=== PATIENT | male | born 1990 | race African-American/Black ===

== ENCOUNTER 2018-10-26 00:13 | Emergency (ER) | payer MEDICARE, MEDICAID ==
[~2018-10-26] VITALS: Ht 177.8 cm; Wt 86.2 kg
[2018-10-26 00:20] VITALS: BP 132/76
--- NOTE | 2018-10-26 00:35 | Emergency Room Report ---
History of Present Illness General Chief Complaint: Alcohol Intoxication Source: Patient, EMS Present Illness HPI Is a 28-year-old male brought in by EMS with chief complaint of alcohol intoxication. He is homeless and stated that he has been drinking heavily tonight. Bystander called 911. Patient denies any suicidal thoughts homicidal thought. Denies any drug use. No other complaint. Nothing made it better. Nothing made it worse. Allergies: Coded Allergies: UNABLE TO ASSESS (Unverified , 10/26/18) Patient History Past Medical History: see triage record, old chart reviewed Past Surgical History: none Pertinent Family History: none Social History: Reports: alcohol use Immunizations: other Reviewed Nursing Documentation: PMH: Agreed; PSxH: Agreed Nursing Documentation-PMH Past Medical History: No History, Except For Hx Cardiac Problems: No - HIV Review of Systems Eye: Denies: eye pain, blurred vision ENT: Denies: ear pain, nose congestion, throat swelling Respiratory: Denies: cough, shortness of breath Cardiovascular: Denies: chest pain, palpitations Gastrointestinal: Denies: abdominal pain, diarrhea, nausea, vomiting Musculoskeletal: Denies: back pain, joint pain Skin: Denies: rash Neurological: Denies: headache, numbness Endocrine: Denies: increased thirst, increased urine Hematologic/Lymphatic: Denies: easy bruising All Other Systems: negative except mentioned in HPI Physical Exam Vital Signs Date Time Temp Pulse Resp B/P (MAP) Pulse Ox O2 Delivery O2 Flow Rate FiO2 10/26/18 00:14 98.4 86 16 132/76 99 Room Air vitals stable Sp02 EP Interpretation: reviewed, normal General Appearance: well appearing, no apparent distress, alert, other - Intoxicated Head: normocephalic, atraumatic Eyes: bilateral eye PERRL, bilateral eye EOMI ENT: hearing grossly normal, normal pharynx Neck: full range of motion, supple, no meningismus Respiratory: chest non-tender, lungs clear, normal breath sounds Cardiovascular #1: regular rate, rhythm, no murmur Gastrointestinal: normal bowel sounds, non tender, no mass, no organomegaly, no bruit, non-distended Musculoskeletal: back normal, gait/station normal, normal range of motion Psychiatric: mood/affect normal Skin: warm/dry Medical Decision Making Diagnostic Impression: Primary Impression: Acute alcoholic intoxication Qualified Codes: F10.929 - Alcohol use, unspecified with intoxication, unspecified ER Course Patient with alcohol intoxication. No trauma to warrant CT scan or x-rays. Not suicidal homicidal. We'll discharge home in the morning once he is clinically sober. Last Vital Signs Date Time Temp Pulse Resp B/P (MAP) Pulse Ox O2 Delivery O2 Flow Rate FiO2 10/26/18 00:14 98.4 86 16 132/76 99 Room Air Status: improved Disposition: HOME, SELF-CARE Condition: Stable Scripts Unable to Obtain Active Prescriptions or Reported Meds Patient Instructions: Alcohol Intoxication, [id number] Additional Instructions: Follow-up with your doctor in 7 days. Abstain from alcohol. Return if worse. Zaheer Kaur MD Oct 26, 2018 00:35
[2018-10-26 02:37] VITALS: BP 122/72
[2018-10-26 05:56] VITALS: BP 117/73
== END 2018-10-26 05:50 | disposition home or self-care (01) ==
LOC: EDBD 00:13 → EMR 00:28
DX: F10.129 Alcohol abuse with intoxication, unspecified (principal); Z59.0 Homelessness
CPT/HCPCS: 99284

== ENCOUNTER 2019-11-01 19:15 | Emergency (ER) | payer MEDICARE, MEDICAID ==
[~2019-11-01] VITALS: Ht 182.9 cm; Wt 85.3 kg
--- NOTE | 2019-11-01 19:37 | NUR ---
ED Nurse Note: pt walked in c/o hearing voices, suicidal ideation, and need a place to sleep. pt belongings removed and documented and placed on cabinet 2. VSS, NAD, Pt is gowned and in bed. Will continue to monitor.
--- NOTE | 2019-11-01 19:38 | NUR ---
ED Nurse Note: suicide precaution in place, moreno Lowery RN at the bedside, charge nurse notified regarding pt's condition. safety measures in place.
[2019-11-01 19:50] VITALS: BP 106/70
--- NOTE | 2019-11-01 19:56 | NUR ---
ED Nurse Note: COLLECTED BLOOD THEN SENT.
--- NOTE | 2019-11-01 20:00 | NUR ---
ED Nurse Note: urine collected and sent to lab.
[2019-11-01 20:06] LABS: BASOPHILS % (AUTO) 1.2 % (0.0-2.0); EOSINOPHILS % (AUTO) 2.4 % (0.0-3.0); HEMATOCRIT 36.4 % (42.0-52.0); HEMOGLOBIN 11.6 G/DL (14.2-18.0); LYMPHOCYTES % (AUTO) 36.9 % (20.0-45.0); MEAN CORPUSCULAR VOLUME 73 FL (80-99); MONOCYTES % (AUTO) 16.3 % (1.0-10.0); NEUTROPHILS % (AUTO) 43.2 % (45.0-75.0); PLATELET COUNT 169 K/UL (150-450); RED BLOOD COUNT 4.97 M/UL (4.70-6.10); RED CELL DISTRIBUTION WIDTH 12.7 % (11.6-14.8); WHITE BLOOD COUNT 5.6 K/UL (4.8-10.8)
--- NOTE | 2019-11-01 20:16 | Emergency Room Report ---
History of Present Illness General Chief Complaint: Behavioral Complaint Source: Patient (YairleonardoGermaine NEAL) Present Illness HPI Patient presents with reports of suicidal thoughts Patient cannot give any specific plan He does report history of schizophrenia and bipolar disease patient reports that he has been on Zyprexa before however is not taking that medications Denies any headache denies any chest pain denies any abdominal pain Denies any auditory or visual hallucinations (Germaine Ruiz DO) Allergies: Coded Allergies: No Known Allergies (Unverified , 11/01/19) Patient History Past Medical History: see triage record Reviewed Nursing Documentation: PMH: Agreed; PSxH: Agreed (Germaine Ruiz DO) Nursing Documentation-PMH Past Medical History: No History, Except For (Germaine Ruiz DO) Review of Systems All Other Systems: negative except mentioned in HPI (Germaine Ruiz DO) Physical Exam Vital Signs Date Time Temp Pulse Resp B/P (MAP) Pulse Ox O2 Delivery O2 Flow Rate FiO2 11/01/19 19:37 98.1 76 18 106/70 (82) 96 Room Air Sp02 EP Interpretation: reviewed, normal General Appearance: well appearing, no apparent distress Head: normocephalic, atraumatic Eyes: bilateral eye PERRL, bilateral eye EOMI ENT: hearing grossly normal, normal pharynx, TMs + canals normal, uvula midline Neck: full range of motion, supple, no meningismus, no bony tend Respiratory: lungs clear, normal breath sounds, no rhonchi, no respiratory distress, no retraction, no accessory muscle use Cardiovascular #1: normal peripheral pulses, regular rate, rhythm, no edema, no gallop, no JVD, no murmur Gastrointestinal: normal bowel sounds, non tender, soft, no mass, no organomegaly, non-distended, no guarding, no hernia, no pulsatile mass, no rebound Musculoskeletal: normal inspection Neurologic: motor strength/tone normal, contracts administrator III-XII nml as tested, oriented x3 , sensory intact, responsive Psychiatric: other - Patient reported suicidal thoughts upon arrival Skin: no rash Lymphatic: normal inspection, no adenopathy (Germaine Ruiz DO) Medical Decision Making Diagnostic Impression: Primary Impression: Substance abuse ER Course Patient endorsed to me by Dr. Ruiz. Patient has been medically cleared. Patient reportedly had been having increased suicidal thoughts. Urine drug screen was noted to be positive for amphetamine. Labs Test 11/01/19 19:55 11/01/19 19:59 White Blood Count 5.6 K/UL (4.8-10.8) Red Blood Count 4.97 M/UL (4.70-6.10) Hemoglobin 11.6 G/DL (14.2-18.0) Hematocrit 36.4 % (42.0-52.0) Mean Corpuscular Volume 73 FL (80-99) Mean Corpuscular Hemoglobin 23.3 PG (27.0-31.0) Mean Corpuscular Hemoglobin Concent 31.9 G/DL (32.0-36.0) Red Cell Distribution Width 12.7 % (11.6-14.8) Platelet Count 169 K/UL (150-450) Mean Platelet Volume 5.7 FL (6.5-10.1) Neutrophils (%) (Auto) 43.2 % (45.0-75.0) Lymphocytes (%) (Auto) 36.9 % (20.0-45.0) Monocytes (%) (Auto) 16.3 % (1.0-10.0) Eosinophils (%) (Auto) 2.4 % (0.0-3.0) Basophils (%) (Auto) 1.2 % (0.0-2.0) Sodium Level 142 MMOL/L (136-145) Potassium Level 4.0 MMOL/L (3.5-5.1) Chloride Level 109 MMOL/L (98-107) Carbon Dioxide Level 24 MMOL/L (21-32) Anion Gap 9 mmol/L (5-15) Blood Urea Nitrogen 14 mg/dL (7-18) Creatinine 0.8 MG/DL (0.55-1.30) Estimat Glomerular Filtration Rate > 60 mL/min (>60) Glucose Level 84 MG/DL (74-106) Calcium Level 8.4 MG/DL (8.5-10.1) Total Bilirubin 0.3 MG/DL (0.2-1.0) Aspartate Amino Transf (AST/SGOT) 64 U/L (15-37) Alanine Aminotransferase (ALT/SGPT) 55 U/L (12-78) Alkaline Phosphatase 78 U/L (46-116) Total Protein 7.8 G/DL (6.4-8.2) Albumin 3.1 G/DL (3.4-5.0) Globulin 4.7 g/dL Albumin/Globulin Ratio 0.7 (1.0-2.7) Salicylates Level 2.8 ug/mL (2.8-20) Acetaminophen Level < 2 MCG/ML (10-30) Serum Alcohol < 3 mg/dL Urine Opiates Screen Negative (NEGATIVE) Urine Barbiturates Screen Negative (NEGATIVE) Phencyclidine (PCP) Screen Negative (NEGATIVE) Urine Amphetamines Screen Positive (NEGATIVE) Urine Benzodiazepines Screen Negative (NEGATIVE) Urine Cocaine Screen Negative (NEGATIVE) Urine Marijuana (THC) Screen Positive (NEGATIVE) (Cas Noel MD) Last Vital Signs Date Time Temp Pulse Resp B/P (MAP) Pulse Ox O2 Delivery O2 Flow Rate FiO2 11/01/19 19:37 98.1 76 18 106/70 (82) 96 Room Air (Germaine Ruiz DO) Status: improved (Cas Noel MD) Disposition: HOME, SELF-CARE Condition: Stable Germaine Ruiz DO Nov 01, 2019 20:16 Cas Noel MD Nov 02, 2019 05:20
[2019-11-01 20:24] LABS: ANION GAP 9 mmol/L (5-15); BLOOD UREA NITROGEN 14 mg/dL (7-18); CALCIUM 8.4 MG/DL (8.5-10.1); CARBON DIOXIDE 24 MMOL/L (21-32); CHLORIDE 109 MMOL/L (98-107); CREATININE 0.8 MG/DL (0.55-1.30); SODIUM 142 MMOL/L (136-145)
[2019-11-01 20:25] LABS: ALANINE AMINOTRANSFERASE 55 U/L (12-78); ALBUMIN 3.1 G/DL (3.4-5.0); ALBUMIN/GLOBULIN RATIO 0.7 (1.0-2.7); ALKALINE PHOSPHATASE 78 U/L (46-116); ASPARTATE AMINO TRANSFERASE 64 U/L (15-37); BILIRUBIN,TOTAL 0.3 MG/DL (0.2-1.0)
--- NOTE | 2019-11-01 20:45 | NUR ---
ED Nurse Note: ERMD at bedside.
--- NOTE | 2019-11-01 21:30 | NUR ---
ED Nurse Note: Patient sleeping. NAD, calm and resting. Will continue to monitor.
[2019-11-01 22:30] VITALS: BP 112/65
--- NOTE | 2019-11-01 22:30 | NUR ---
ED Nurse Note: Patient is asleep and calm. NAD, VSS, will continue to monitor.
--- NOTE | 2019-11-01 23:34 | NUR ---
ED Nurse Note: Patient sleeping. NAD, calm and resting. Will continue to monitor.
[2019-11-02] VITALS (9 sets, daily range): BP systolic 101–123; BP diastolic 68–74
--- NOTE | 2019-11-02 00:40 | NUR ---
ED Nurse Note: Patient is calm, sleeping, NAD. Will continue to monitor.
--- NOTE | 2019-11-02 01:40 | NUR ---
ED Nurse Note: Patient is calm, sleeping, NAD. Will continue to monitor.
--- NOTE | 2019-11-02 02:40 | NUR ---
ED Nurse Note: Patient is calm, sleeping, NAD. Will continue to monitor.
--- NOTE | 2019-11-02 05:16 | NUR ---
ED Nurse Note: Pt is asleep, calm and NAD. Will continue to monitor patient.
--- NOTE | 2019-11-02 07:12 | NUR ---
HAND-OFF: Report given to Qi MCKENZIE.
--- NOTE | 2019-11-02 07:13 | NUR ---
ED Nurse Note: Received report from [employer] RN. Pt awake, alert and oriented, verbally responsive. No SI/ HI at this time. Sitter at bedside. Will continue to monitor.
--- NOTE | 2019-11-02 08:15 | NUR ---
ED Nurse Note: Breakfast meal tray provided.
--- NOTE | 2019-11-02 10:15 | NUR ---
ED Nurse Note: Patient awake, alert and oriented. Pt is eating. Sitter at bedside. Will cont to monitor.
--- NOTE | 2019-11-02 12:55 | NUR ---
ED Nurse Note: Lunch tray provided. Patient is eating. alert and oriented. No SI/ HI at this time. Sitter at bedside.
--- NOTE | 2019-11-02 14:15 | NUR ---
ED Nurse Note: Patient seen sleeping in bed. Not in any distress. Sitter at bedside. Will cont to monitor.
--- NOTE | 2019-11-02 16:37 | NUR ---
ED Nurse Note: Patient walked to the restroom with steady gait. Accompanied by sitter. No SI/ HI at this time.
--- NOTE | 2019-11-02 18:45 | NUR ---
ED Nurse Note: Patient awake, alert and oriented. No SI/ HI at this time. No SOB. Sitter at bedside.
--- NOTE | 2019-11-02 19:21 | NUR ---
HAND-OFF: Report given to Pricila MCKENZIE.
--- NOTE | 2019-11-02 19:22 | NUR ---
ED Nurse Note: received patient in bed, patient resting comfortably, denies SI/HI. dinner tray provided. sitter at bedside.
--- NOTE | 2019-11-02 22:13 | NUR ---
ED Nurse Note: report was given to Gabriella MCKENZIE, endorsed all plan of care to Gabriella MCKENZIE at [facility].
--- NOTE | 2019-11-02 23:15 | NUR ---
HAND-OFF: Report given to INOCENCIA MCKENZIE.
--- NOTE | 2019-11-02 23:35 | NUR ---
patient has been transferd to [facility] via [facility]
[2019-11-03 00:03] VITALS: BP 120/80
== END 2019-11-02 23:30 | disposition home or self-care (01) ==
LOC: EMR 22:11 → MERGE 22:11 → EDBD 22:11 → EMR 11-02 23:30
DX: F15.10 Other stimulant abuse, uncomplicated (principal)
CPT/HCPCS: 36415; 80053; 80307; 85025; 99285; G0480